=== PATIENT | male | born 1980 | race Caucasian/White ===

== ENCOUNTER 2021-12-27 17:31 | Emergency (ER) | payer OTHER, SELFPAY ==
[2021-12-27 17:32] VITALS: BP 134/88; PULSE 98; RESP 18; TEMP 36.9; O2SAT 98; BMI 34.4
--- NOTE | 2021-12-27 17:41 | ECG_ITS ---
APPROVED REPORT Exam: Resting ECG HR:88 bpm ECG Measurements Heart Rate 88 AXES WV 120 P 37 QRSd 105 QRS 77 QT 373 T 53 QTc 419 Conclusion SINUS RHYTHM NONSPECIFIC T-WAVE ABNORMALITY BORDERLINE ECG UNCONFIRMED REPORT Electronically signed by : Demetrio Williamson MD 12/27/2021 19:15:59
--- NOTE | 2021-12-27 17:44 | XR_ITS ---
PROCEDURE INFORMATION: Exam: XR Chest Exam date and time: 12/27/2021 5:44 PM Age: 41 years old Clinical indication: Cough; Additional info: Cough, dizziness, weakness TECHNIQUE: Imaging protocol: XR of the chest. Views: 1 view. COMPARISON: No relevant prior studies available. FINDINGS: Lungs: Ill-defined infiltrate at the right lung base. Pleural spaces: Unremarkable. No pleural effusion. No pneumothorax. Heart/Mediastinum: Unremarkable. No cardiomegaly. Bones/joints: Mild upper thoracic curvature. IMPRESSION: Right lung base infiltrate may represent pneumonia.
[2021-12-27 17:49] LABS: POC Glucose,Bedside 219 (70-110)
[2021-12-27 18:24] LABS: Basophils # 0.1 K/mm3 (0-0.2); Basophils % 0.5 % (0.1-2.0); Eosinophils # 0.1 K/mm3 (0.0-0.4); Eosinophils % 0.8 % (0.1-12.0); Hematocrit 48.7 % (42.0-52.0); Hemoglobin 16.6 g/dL (14.1-18.0); Lymphocytes # 1.1 K/mm3 (0.7-4.5); Mean Corpuscular HGB Conc 34.1 g/dL (31.8-35.4); Mean Corpuscular Hemoglobin 30.2 pg (27.0-31.2); Mean Corpuscular Volume 88.4 fl (80-94); Mean Platelet Volume 8.4 fl (7.4-10.4); Monocytes # 0.4 K/mm3 (0.1-1.0); Monocytes % 3.7 % (1.7-9.3); Neutrophils # 7.8 K/mm3 (1.8-7.8); Platelet Count 248 K/mm3 (142-424); Red Blood Count 5.51 M/mm3 (4.60-6.20); Red Cell Distribution Width 13.5 % (11.5-17.5); White Blood Count 9.4 K/mm3 (4.8-10.8)
[2021-12-27 18:30] LABS: Alanine Aminotransferase 160 U/L (12-78); Albumin Level 4.8 g/dl (3.5-5.0); Albumin/Globulin Ratio 1.6 (1.1-1.8); Alkaline Phosphatase 60 U/L (38-126); Anion Gap 13.5 mEq/L (5-15); Aspartate Amino Transferase 78 U/L (17-59); Bilirubin,Total 0.7 mg/dl (0.2-1.3); Blood Urea Nitrogen 19 mg/dl (9-20); Calcium 9.4 mg/dl (8.4-10.2); Carbon Dioxide 29 mmol/L (22.0-30.0); Chloride 102 mmol/L (98-107); Creatinine Clearance Estimated 148 mL/min (50-200); Estimated Glomerular Filt Rate 82 ml/min (>60); GFR (African American) 99 ML/MIN (>60); Glucose 240 mg/dl (74-100); Potassium 4.5 mmoL/L (3.5-5.1); Sodium 140 mmol/L (136-145); Total Protein,Serum 7.8 g/dl (6.3-8.2)
[2021-12-27 18:39] LABS: Acetone, Serum (Rapid) None Detected (None Detect)
[2021-12-27 18:52] LABS: Troponin I < 0.01 ng/ml (0.00-0.034)
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
[2021-12-27 19:12] VITALS: BP 135/75; PULSE 84; RESP 19; TEMP 36.7; O2SAT 95
== END 2021-12-27 19:13 | disposition home or self-care (01) ==
PROVIDERS: Emergency Provider Emergency Medicine; PCP Pediatrics
DX: R55 Syncope and collapse (principal); R73.9 Hyperglycemia, unspecified
CPT/HCPCS: 71045; 80053; 82009; 82962; 84484; 85025; 93005; 96365; 96375; 99282; 99284; J2405

== ENCOUNTER 2024-09-28 07:52 | Outpatient (CLI) | payer OTHER, SELFPAY ==
--- NOTE | 2024-09-28 | CA_ITS ---
APPROVED REPORT Exam: Exercise Treadmill Technologist: Louise Marrero Ht: 5 ft 9 in Wt: 225 lbs BSA: 2.17 m2 HR: 78 bpm BP: 135/89 mmHg Rhythm: NSR Medical History Cardiac Risk Factors: Diabetes (non-insulin), Smoking Stress Test Details HR Resting HR: 78 bpm Max Heart Rate (APMHR): 175.457910 bpm Target HR (85% APMHR): 148.959772 bpm Recovery HR: 142 bpm BP Resting BP: 135.0/89.0 mmHg Recovery BP: 163.0/94.0 mmHg ECG Resting ECG: NSR Stress ECG Conclusion Pt exercised total of 6:45 minutes on aaron protocol, stage 2 held for completion. No CP noted. No arrhythmias noted. Normal ST response to exercise. Normal GXT noted. Electronically signed by : Tati Woodward MD 10/03/2024 12:39:18
--- NOTE | 2024-09-28 07:53 | CA_ITS ---
APPROVED REPORT EXAM: Comprehensive 2D, Doppler, and color-flow Echocardiogram Ornamental Rail Installer: April Pabon RDCS Ht: 5 ft 9 in Wt: 230lbs BSA: 2.19 BP: 144/80 mmHg Indications: CP,SOA M-Mode Dimensions RVDd 2.24 cm (0.9-2.6) LA Diam 4.19 cm (1.9-4.0) LVDd 5.17 cm (3.5-5.7) LVDs 3.74 cm (3.5-5.7) IVSd 0.85 cm (0.6-1.1) PWd 0.85 cm (0.6-1.1) EF (Teich) 53.40% EPSs 2.08 cm FS 27.70% EDV (Teich) 127.80 mL TAPSE 2.40 (<1.7) ESV (Teich) 59.60 mL LV Diastology E Decel Time 140 (160-240 msec) E/A Ratio 1.5 Mitral Valve MV E Max Brandon. 70.0 (40-130 cm/s) MV A Velocity 48.0 (40-130 cm/s) E/A Ratio 1.46 MV PHT 41.0 ms Left Ventricle The left ventricle is normal size. The left ventricular systolic function is normal. The left ventricular ejection fraction is within the normal range. There is normal left ventricular wall thickness. There is normal LV segmental wall motion. The left ventricular diastolic function is normal. LVEF is 55%. Right Ventricle The right ventricle is normal size. The right ventricular systolic function is normal. Atria The left atrium size is normal. The right atrium size is normal. There is no Doppler evidence of interatrial shunt. Aortic Valve The aortic valve opens well. There is no aortic valvular stenosis. No aortic regurgitation is present. Mitral Valve The mitral valve is normal in structure. No evidence of mitral valve stenosis. There is no mitral valve regurgitation noted. Tricuspid Valve Tricuspid valve is grossly normal in structure and function. Trace tricuspid regurgitation. There is insufficient TR jet to estimate RVSP. Pulmonic Valve The pulmonary valve is normal in structure. Trace pulmonic regurgitation. Great Vessels The aortic root is normal in size. The ascending aorta is not well-visualized. IVC is normal in size and collapses >50% with inspiration. Pericardium There is no pericardial effusion. Other Information Study Quality: Fair Conclusion Normal biventricular systolic function. No significant valvular stenosis or regurgitation. Electronically signed by : Tati Woodward MD 10/09/2024 23:13:26
--- NOTE | 2024-09-28 07:53 | NM_ITS ---
APPROVED REPORT Exam: Nuclear Stress Test Indication: diabetes, hyperlipidemia, tob use, .p., sob, palpitations, syncope, fatigue Patient Location: Outpatient Stress Tech: Louise Marrero MT Tech:VINI Richards RT (R)(N)(M) Ht: 5 ft 9 in Wt: 225 lbs HR: 82 bpm BP: 135/89 mmHg BSA: 2.17 m2 TID: 1.24 BMI: 33.2 History: diabetes, hyperlipidemia, tob use, .p., sob, palpitations, syncope, fatigu Procedure: Patient exercised on Luis protocol 6:45 minutes and sec, resting heart rate 82 bpm, resting blood pressure 135/89 mmHg, with exercise maximum heart rate achived was 164 bpm which is 94 % of the maximum predicted heart rate and blood pressure was 200/90 mmHg. Test was stopped due to fatigue. Patient denied any complaint of chest pain. Patient has average exercise capacity, achieved 7.1 METs of workload on treadmill, the blood pressure response to exercise was exaggerated. Cardiac Stress and Resting SPECT Images: Cardiac Stress and Resting SPECT images were obtained using technetium 99m Myoview 31.3 mCi stress and 10.64 mCi at rest. Resting and stress imaging in supine and prone positions demonstrate a medium sized, mild, partially reversible perfusion defect in the basal to mid lateral LV wall. There is increase in transintt ischemic dilatation ratio (TID 1.24), suggestive of possible multivessel disease or balanced ischemia. Gated imaging demonstrates mild reduction global LV systolic function. LVEF is calculated at 49%. Conclusion: Medium sized, mild, partially reversible perfusion defect in the basal to mid lateral LV wall. Findings are suggestive of partial reversible ischemia. There is increase in transient ischemic dilatation ratio (TID 1.24), suggestive of possible multivessel disease or balanced ischemia. Gated imaging demonstrates mild reduction global LV systolic function. LVEF is calculated at 49%. Of note, the patient had an exaggerated BP response to exercise (BP 200/90 mmHg) at peak stress. BP control is recommended. Electronically signed by : Tati Woodward MD 10/03/2024 12:41:29
[2024-09-28] MEDS: SODIUM CHLORIDE 0.9% 10ML SYR (RAD ONLY) 10 ML IV ×2 (08:00→09:15)
[2024-09-28] MEDS: ISOTOPE MYOVIEW (PER STUDY) 1 DOSE IV (10:30)
== END 2024-09-28 23:59 | disposition home or self-care (01) ==
LOC: RAD 07:53
PROVIDERS: PCP Nurse Practitioner; Visit Provider Physician Assistant
DX: I20.89 Other forms of angina pectoris (principal); R06.00 Dyspnea, unspecified
CPT/HCPCS: 78452; 93017; 93018; 93306; A9502

== ENCOUNTER 2024-10-06 09:38 | Outpatient (CLI) | payer OTHER, SELFPAY ==
--- NOTE | 2024-10-06 | XR_ITS ---
FINAL REPORT CLINICAL HISTORY: SHOULDER PAIN COMPARISON: None FINDINGS: RIGHT SHOULDER 3 views demonstrate no acute fracture or dislocation. There is mild widening of the AC joint of uncertain significance. Mild AC separation cannot be excluded. The visualized bony structures are well aligned. No soft tissue abnormality is seen. IMPRESSION: No acute process. Possible mild AC separation. Reviewed, Interpreted and Dictated by Erwin Diane III, MD Transcribed by Lakeisha Caceres Authenticated and [facility]
--- NOTE | 2024-10-06 09:46 | XR_ITS ---
FINAL REPORT CLINICAL HISTORY: PAIN COMPARISON: None FINDINGS: LEFT SHOULDER 3 views demonstrate no acute fracture or dislocation. There is mild widening of the AC joint of uncertain significance. Mild AC separation cannot be excluded. The visualized bony structures are well aligned. No soft tissue abnormality is seen. IMPRESSION: No acute process. Possible mild AC separation. Reviewed, Interpreted and Dictated by Erwin Diane III, MD Transcribed by Lakeisha Caceres Authenticated and . [facility]
== END 2024-10-06 23:59 | disposition home or self-care (01) ==
LOC: RAD 09:43
PROVIDERS: PCP Nurse Practitioner; Visit Provider Nurse Practitioner
DX: M25.511 Pain in right shoulder (principal); M25.512 Pain in left shoulder
CPT/HCPCS: 73030

== ENCOUNTER 2024-10-18 10:00 | Outpatient (RCR) | payer OTHER, SELFPAY ==
--- NOTE | 2024-10-12 09:46 | HMH.OTOPEV ---
OT Inpatient Evaluation Rehab OT Outpatient Eval Start: 10/12/24 08:57 Freq: Status: Active Protocol: Document 10/12/24 08:58 PITA (Rec: 10/12/24 09:43 PITA [id number]) E-signed By Emely Burkett, OT Outpatient Therapy Subjective History Subjective History Pt is a 44 year old male who reports to therapy for initial evaluation to bilateral shoulders. Pt reports he began having pain ~2-3 months ago. He does not recall a specific injury causing pain to begin. Pt explains he woke up from sleeping one morning and he experience stiffness and pain in both shoulders. Pt's left shoulder is usually more painful and limited than the right. Pt is ambidextrous . 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 Pt complains of most of his pain following the long head of the bicep tendon down into the elbow. Pt is limited in AROM at both shoulders, but has more decreased ranged of motion in the left. Pt has significant pain with abduction at left shoulder as well. Pt will continue to be seen in order to address all deficits. STG AROM Right shoulder Flex: 160 Abd: 150 ER: 75 Left Shoulder Flex: 160 Abd: 120 ER: 60 IR: 60 LTG AROM Right shoulder Flex: 170 Abd: 160 ER: 90 Left Shoulder Flex: 170 Abd: 150 ER: 75 IR: 70 New diagnosis of cancer in past 12 No months? Chief Complaint Pain,Stiff,Weakness Symptom Type Ache,Throb,Sharp Symptoms Relieved By Rest/Positioning Symptoms Aggravated By Physical Activity,Lifting Prior Functional Limitations None Current Functional Limitations Reaching,Lifting,Housework, Dressing,Driving,Sleeping Symptom Description Intermittent,Activity Dependent Level of pain today (0-10) 0 Pain scale - at its best (0-10) 0 Pain scale - at its worst (0-10) 10 Shoulder/Elbow Eval Shoulder Objective Measurements Shoulder ROM Right Shoulder Abduction Active Range of 130 degrees Motion (degrees) Shoulder Flexion Active Range of Motion 148 degrees (degrees) Query Text: Shoulder External Rotation Active Range 55 degrees of Motion (degrees) Shoulder Internal Rotation Active Range 70 degrees of Motion (degrees) Left Shoulder Abduction Active Range of 95 degrees Motion (degrees) Shoulder Flexion Active Range of Motion 142 degrees (degrees) Query Text: Shoulder External Rotation Active Range 38 degrees of Motion (degrees) Shoulder Internal Rotation Active Range 50 degrees of Motion (degrees) Shoulder MMT Right Shoulder Abduction Strength Grade 4- Good- Shoulder Flexion Strength Grade 4- Good- Shoulder External Rotation Strength 4- Good- Grade Shoulder Internal Rotation Strength 4- Good- Grade Shoulder Strength Patient Testing Sitting Position Left Shoulder Abduction Strength Grade 4- Good- Shoulder Flexion Strength Grade 4- Good- Shoulder External Rotation Strength 4- Good- Grade Shoulder Internal Rotation Strength 4- Good- Grade Shoulder Strength Patient Testing Sitting Position Elbow Objective Measurements QuickDASH Activities Please rate your ability to do the following activities in the last week by selecting the number below the appropriate response. 1. Open a tight or new jar. Severe difficulty 2. Do heavy database programmer analyst (e.g., wash Unable rodriguez, floors). 3. Carry a shopping bag or briefcase. Moderate difficulty 4. Wash your back. Unable 5. Use a knife to cut food. No difficulty 6. Recreational activities in which you Mild difficulty take some force or impact through your arm, shoulder, or hand (e.g., golf, hammering, tennis, etc.). 7. During the past week, to what extent Not at all has your arm, shoulder or hand problem interfered with your normal social activities with family, friends, neighbors or groups? 8. During the past week, were you Very limited limited in your work or other regular daily activites as a result of your arm, shoulder or hand problem? 9. Arm, shoulder or hand pain. Extreme 10. Tingling (pins and needles) in your None arm, shoulder or hand. 11. During the past week, how much So much difficulty that I can' difficulty have you had sleeping because t sleep of the pain in your arm, shoulder or hand? Quick DASH 36 OT Outpatient Assessment Impairments Problems/Impairments Palpation Tenderness,Impaired Range of Motion,Impaired Strength,Impaired Endurance, Impaired Lifting,Impaired Dressing,Impaired Shower/ Bathing,Impaired Household Care,Impaired Work Activities, Subjective C/O Pain Prognosis Rehab Potential Good Clinical Impression Consistent with Diagnosis Yes Short Term Goals Number of Weeks 3 Increase Range of Motion Yes: See history Increase Strength Yes: 4/5 throughout bilateral shoulders Increase Endurance Yes: Pt will tolerate ~20 minutes of B/L shoulder exercises prior to rest. Decrease Subjective C/O Pain Yes: 6/10 at worst Patient to be Ind w/ HEP Yes: AAROM exercises: wall wipes; wand exercises Improve Quick Dash Score Yes: Activities: 30 or below University Professor Goals Number of Weeks 6 Increase Range of Motion Yes: See history Increase Strength Yes: 5/5 throughout B/L shoulders Increase Endurance Yes: Pt will tolerate B/L shoulder exercises for ~30 minutes prior to rest. Decrease Subjective C/O Pain Yes: 3/10 at worst Patient to be Ind w/ Advanced HEP Yes: Advanced strengthening Improve Quick Dash Score Yes: Activities: 25 or below Outpatient Therapy Plan of Care Treatment Plan May Include Therapeutic Exercise Including Home Yes Exercise Program Manual Therapy Techniques Yes Neuromuscular Re-education Yes Therapeutic Activities to Return to Yes Previous Functional/Work Level ADL/Self Care Education Yes Dry Needling Yes Thermal Modalities Yes Electrical Stimulation Yes Ultrasound/Phonophoresis Yes Iontophoresis Yes Massage Yes Eval/Re-Eval Yes Frequency Times per week 2 Duration Number of Weeks 6 Addendums This patient is a candidate for social No or vocational rehab? Patient/Guardian verbally acknowledges Yes understanding of treatment program and consents to further treatment? Patient/Guardian verbally acknowledges Yes understanding of diagnosis, prognosis and goals for treatment? Eval Complexity OT Charge 16928 - Moderate Complexity PHYSICIAN CERTIFICATION: I certify the specified therapy services for Dennys Oneal are required, authorized, and reviewed every 30 days.
== END 2024-10-18 23:59 | disposition home or self-care (01) ==
LOC: OT 10:00
PROVIDERS: PCP Nurse Practitioner; Visit Provider Nurse Practitioner
DX: M25.511 Pain in right shoulder (principal); M25.512 Pain in left shoulder; S43.429A Sprain of unspecified rotator cuff capsule, initial encounter
CPT/HCPCS: 97014; 97110; 97140; 97166; G0283

== ENCOUNTER 2024-10-18 10:57 | Outpatient (CLI) | payer OTHER, SELFPAY ==
--- NOTE | 2024-10-18 10:58 | CT_ITS ---
APPROVED REPORT [employer]: CLINICAL INDICATION Chest Pain TECHNIQUE Image Acquisition: A 128 slice MDCT scanner ([employer] Infuse[employer] View) was used for data acquisition. A noncontrast coronary calcium scan was performed. A CT attenuation threshold of 130 Hounsfield units (HU) was used for the detection of calcium in contiguous voxels of 1 sq mm in area to be counted as individual lesions. Bolus tracking in the ascending aorta with a threshold of 180 HU was performed. Immediately afterwards, ECG synchronized cardiac CT was then performed from the cardiac base to apex using retrospective gating with ECG tube current modulation. A total of 85 mL of Isovue 370 mg/mL contrast medium was administered at 5 mL/sec followed by a saline flush using a biphasic injection protocol. A tube voltage of 120 KVp was used. The patient received the following medications prior to the cardiac CT. 50 mg of oral metoprolol 10 mg of intravenous metoprolol 15 mg of oral ivabradine 0.8 mg of sublingual nitroglycerin The average heart rate at the time of acquisition was 61 bpm and regular. Image Reconstruction Transaxial images were reconstructed at 0.67 mm slide thickness. Data was reviewed interactively on an advanced workstation capable of 2 and 3-dimensional displays in all conventional reconstruction formats, including multiplanar reformations, maximum intensity projections, curved multiplanar reformations, and volume rendered reconstructions. When applicable, selected routine images describing the relevant coronary anatomy and pathology were saved and sent to PACS. Complications None Technical Quality Overall image quality was good. Coronary artery opacification was adequate. Total DLP (Dose-Length Product) is 1615.9 mGy-cm. The reported value represents the total of one or more individual components during the CT acquisition of this date and at this time, and as such, the same value may appear in more than one CT report depending on the interpreting/reporting physicians. COMPARISON None FINDINGS CT Coronary Calcium Scoring LMA (Left Main Artery) = 8 LAD (Left Anterior Descending) = 8 LCX (Left Coronary Circumflex) = 12 RCA (Right Coronary Artery) = 49 Total Calcium Score = 77 using the AJ-130 method. The observed calcium score of 77 is at 94th percentile for subjects of the same age, sex, and race/ethnicity. The interpretation of the calcium heart score is based on the following continuum*: 0 = no calcified plaque detected (risk of coronary artery disease is very low ??? less than 5%) 1-10 = calcium detected in extremely minimal levels (risk of coronary diseases is still low ??? less than 10%) 11-100 = mild levels of plaque detected with certainty (mild or minimal narrowing of heart arteries is likely) 101-400 = definite,at least moderate levels of plaque detected (relatively high risk of a heart attack within 3-5 years) >401-999 = extensive levels of plaque detected (high risk of heart attack, high levels of vascular disease are present, high likelihood of at least one significant coronary narrowing) *The calcium heart score quantifies the burden of coronary calcification/plaque in the coronary arteries. The calcium heart score is not able to evaluate the presence or burden of non-calcified (i.e. soft) plaque. There is no identifiable calcification in the aortic valve, mitral annulus or mitral valve, pericardium, or myocardium. Coronary CT Angiography The coronary arterial system is right dominant. Quantitative Stenosis Grading: Left Main (LM): The left main originates normally from the left sinus of Valsalva. The LM bifurcates into the left anterior descending artery and left circumflex artery. There is calcified plaque in the proximal LM segment, with no evidence of luminal stenosis. Left Anterior Descending (LAD) and Diagonal Branches: The LAD gives off 2 diagonal branch(es). There is calcified plaque in the proximal LAD segment, with < 25% luminal stenosis. There is no evidence of LAD-myocardial bridge. Left Circumflex (LCX) and Obtuse Marginals (OM): The LCX gives off 1 Obtuse Marginal (OM) branch(es). There is calcified plaque in the proximal LCx segment with 25-49% luminal stenosis. Right Coronary Artery (RCA): The RCA originates normally from the right sinus of Valsalva. The RCA gives off a posterior descending artery (PDA) and posterolateral (PL) branches. There is calcified plaque in the proximal and mid RCA segments, with no evidence of luminal stenosis. Non-Coronary Cardiac Findings: Analysis of the left ventricular (LV) structure and function was performed after 3-D reconstruction of the LV from axial images, with user-corrected automatic contouring for assessment of LV volumes and user-defined reconstruction from oblique planes for measurement of 3-D cardiac structure and function. -The left ventricle systolic function is normal. -There is no left atrial appendage filling defect. Two right pulmonary veins and two left pulmonary veins drain normally into the left atrium. -No pericardial thickening or calcification. -Central and branch pulmonary arteries in the [id number] are unremarkable. -Thoracic aorta within the visualized thoracic aortic-branches in the [id number] is unremarkable. Extracardiac Structures No significant extra-cardiac findings. Note, however, that this study is focused on the cardiac findings. IMPRESSION -Presence of coronary calcification with an Agatston score = 77 using the AJ-130 method. -The observed calcium score of 77 is at 94th percentile for subjects of the same age, sex, and race/ethnicity. -Minimal to mild non-obstructive atherosclerotic coronary disease, with no evidence of significant flow-limiting atherosclerosis of the coronary arteries. -CAD-RADS 2. Management recommendations per ACC/AHA guidelines*, as clinically appropriate. *Recommendations: CAD RADS 0: Reassurance. Consider non-atherosclerotic causes of chest pain. CAD RADS 1: Consider non-atherosclerotic causes of chest pain. Consider preventive therapy and risk factor modification. CAD RADS 2: Consider non-atherosclerotic causes of chest pain. Consider preventive therapy and risk factor modification, particularly for patients with nonobstructive plaque in multiple segments. CAD RADS 3: Consider further functional testing. Consider symptom-guided anti-ischemic and preventive pharmacotherapy as well as risk factor modification per published guideline statements. CAD RADS 4A: Consider further functional testing or invasive coronary angiography with revascularization per published guideline statements. Consider symptom-guided anti-ischemic and preventive pharmacotherapy as well as risk factor modification per published guideline statements. CAD RADS 4B: Invasive coronary angiography recommended with revascularization per published guideline statements. Consider symptom-guided anti-ischemic and preventive pharmacotherapy as well as risk factor modification per published guideline statements. CAD RADS 5: Consider invasive angiography and/or viability assessment with revascularization per published guideline statements. Consider symptom-guided anti-ischemic and preventive pharmacotherapy as well as risk factor modification per published guideline statements. CRITICAL RESULT None COMMUNICATION Per this written report The coronary and cardiac findings of this CCTA were reviewed, reported, and signed by Naveen Woodward MD (S[employer]ing Machine Operator/Tender) Conclusion Electronically signed by : Tati Woodward MD 10/19/2024 12:49:13
[2024-10-18 11:24] VITALS: BMI 32.3
[2024-10-18 11:26] VITALS: BP 131/73; PULSE 73; RESP 18; O2SAT 97
[2024-10-18] MEDS: IVABRADINE HCL 7.5MG TABLET PO (11:36)
[2024-10-18] MEDS: METOPROLOL TARTRATE 50MG TABLET PO (11:37)
[2024-10-18 12:04] LABS: Anion Gap 9.5 mEq/L (5-15); Blood Urea Nitrogen 17 mg/dl (9-20); Calcium 8.9 mg/dl (8.4-10.2); Carbon Dioxide 29 mmol/L (22.0-30.0); Chloride 103 mmol/L (98-107); Creatinine Clearance Estimated 150 mL/min (50-200); Estimated Glomerular Filt Rate 91 ml/min (>60); GFR (African American) 110 ML/MIN (>60); Glucose 215 mg/dl (74-100); Potassium 4.5 mmoL/L (3.5-5.1); Sodium 137 mmol/L (136-145)
[2024-10-18 12:22] VITALS: BP 134/86; PULSE 67; RESP 18; O2SAT 98
[2024-10-18] MEDS: NITROGLYCERIN 0.4MG SL TABLET SL (12:23)
[2024-10-18] MEDS: METOPROLOL TARTRATE 5MG/5ML VIAL 5 MG IV ×2 (12:26→12:35)
[2024-10-18 12:28] VITALS: BP 121/80; PULSE 65; RESP 18; O2SAT 98
[2024-10-18 12:35] VITALS: BP 123/74; PULSE 61; RESP 18; O2SAT 98
[2024-10-18 12:40] VITALS: BP 120/75; PULSE 59; RESP 18; O2SAT 97
[2024-10-18 12:50] VITALS: BP 130/73; PULSE 65; RESP 18; O2SAT 97
[2024-10-18] MEDS: SODIUM CHLORIDE 0.9% 10ML SYR (RAD ONLY) 10 ML IV (13:16)
[2024-10-18] MEDS: 0.9 % SODIUM CHLORIDE 50 ML VIAL IV (13:16)
[2024-10-18] MEDS: IOPAMIDOL-370 (76%);100ML BOTTLE 80 ML IV (13:16)
== END 2024-10-18 13:00 | disposition home or self-care (01) ==
LOC: RAD 10:58
PROVIDERS: PCP Nurse Practitioner; Visit Provider Physician Assistant
DX: R93.1 Abnormal findings on diagnostic imaging of heart and coronary circulation (principal); I20.89 Other forms of angina pectoris
CPT/HCPCS: 75574; 80048; Q9967